=== PATIENT | male | born 1985 | race African-American/Black ===

== ENCOUNTER 2023-12-29 17:09 | Emergency (ER) | payer SELFPAY ==
[2023-12-29] MEDS ORDERED: Sodium Chloride 0.9% 10 ML Syringe FLUSH PRN (17:15)
[2023-12-29] MEDS ORDERED: Sodium Chloride 0.9% 2.5 ML Syringe FLUSH PRN (17:15)
[2023-12-29] MEDS: Morphine 4 MG/ML Syringe IVPUSH ONE ×2 (17:34→17:52)
[2023-12-29] MEDS: Diphtheria,Pertussis(Acell),Tetanus Vaccine 0.5 ML Syringe IM ONE (17:35)
[2023-12-29] MEDS: Bacitracin Oint 1 GM U/D Packet TOP ONE ×2 (17:36)
== END 2023-12-29 18:55 | disposition home or self-care (01) ==
LOC: MW.ED 17:09
DX: T24.212A Burn of second degree of left thigh, initial encounter (principal); T24.211A Burn of second degree of right thigh, initial encounter; T31.0 Burns involving less than 10% of body surface; Z75.8 Other problems related to medical facilities and other health care; Z23 Encounter for immunization; X10.0XXA Contact with hot drinks, initial encounter
CPT/HCPCS: 90471; 90715; 96374; 96376; 99283; J2270; 99284